=== PATIENT | female | born 1995 | race Caucasian/White ===

== ENCOUNTER 2017-10-09 13:20 | Outpatient (CLI) | payer OTHER, MEDICAID ==
[~2017-10-09] VITALS: Ht 172.7 cm; Wt 86.0 kg
[2017-10-09 15:37] LABS: MICROSCOPIC INDICATED
[2017-10-09] MEDS ORDERED: TERBUTALINE 1 MG/ML, 1ML IV ONE (16:30)
[2017-10-09] MEDS ORDERED: TERBUTALINE 1 MG/ML, 1ML ONE (16:32)
== END 2017-10-09 16:50 | disposition home or self-care (01) ==
LOC: LDOP 13:20
PROVIDERS: ATTEND Obstetrics & Gynecology
DX: O42.913 Preterm premature rupture of membranes, unspecified as to length of time between rupture and onset of labor, third trimester (principal); Z3A.30 30 weeks gestation of pregnancy
CPT/HCPCS: 36415; 59025; 81001; 82731; 89060; 96372; 99201; J3105; G0463; Q0114

== ENCOUNTER 2017-10-24 23:18 | Observation (INO) | payer OTHER, MEDICAID ==
[~2017-10-24] VITALS: Ht 172.7 cm; Wt 88.6 kg
[2017-10-25] MEDS ORDERED: TERBUTALINE 1 MG/ML, 1ML ONE (00:04)
[2017-10-25 00:24] LABS: MICROSCOPIC INDICATED
[2017-10-25] MEDS ORDERED: TERBUTALINE 1 MG/ML, 1ML SQ ONE (00:30)
[2017-10-25] MEDS ORDERED: LACTATED RINGERS 1,000 ML IVBOLUS ONE (01:30)
== END 2017-10-25 05:35 | disposition home or self-care (01) ==
LOC: LDOP 23:18 → LDIP 10-25 01:33
PROVIDERS: ADMIT Obstetrics & Gynecology; ATTEND Obstetrics & Gynecology
DX: O26.899 Other specified pregnancy related conditions, unspecified trimester (principal); R10.9 Unspecified abdominal pain; Z3A.00 Weeks of gestation of pregnancy not specified
CPT/HCPCS: 59025; 76815; 81001; 84112; 87086; 96372; G0378; J3105; J7120; 96360

== ENCOUNTER 2017-11-04 20:49 | Outpatient (CLI) | payer OTHER, MEDICAID ==
[~2017-11-04] VITALS: Ht 172.7 cm; Wt 88.6 kg
[2017-11-04 22:43] LABS: MICROSCOPIC AUTO
== END 2017-11-04 23:15 | disposition home or self-care (01) ==
LOC: LDOP 20:49
PROVIDERS: ATTEND Obstetrics & Gynecology
DX: O42.913 Preterm premature rupture of membranes, unspecified as to length of time between rupture and onset of labor, third trimester (principal); O62.9 Abnormality of forces of labor, unspecified; Z3A.34 34 weeks gestation of pregnancy
CPT/HCPCS: 59025; 81001; 84112; 87086; 99211; G0463

== ENCOUNTER 2017-11-25 13:30 | Outpatient (CLI) | payer OTHER, MEDICAID ==
[~2017-11-25] VITALS: Ht 172.7 cm; Wt 92.2 kg
[2017-11-25 13:33] VITALS: BP 102/61
== END 2017-11-25 15:25 | disposition home or self-care (01) ==
LOC: LDOP 13:30
PROVIDERS: ATTEND Obstetrics & Gynecology
DX: O26.893 Other specified pregnancy related conditions, third trimester (principal); R10.9 Unspecified abdominal pain; Z3A.37 37 weeks gestation of pregnancy
CPT/HCPCS: 59025; 99211; G0463

== ENCOUNTER 2017-11-28 21:33 | Inpatient (IN) | payer OTHER, MEDICAID ==
[~2017-11-28] VITALS: Ht 172.7 cm; Wt 92.2 kg
[2017-11-28] MEDS: LACTATED RINGERS 1,000 ML IV SCH (21:43)
[2017-11-28] MEDS ORDERED: NEWBORN KIT ONE (21:47)
[2017-11-28] MEDS ORDERED: OXYTOCIN 30U/ 0.9% NaCL 500ML 500 ML ONE ×2 (21:47→22:29)
[2017-11-28] MEDS ORDERED: MISOPROSTOL 200 MCG TABLET ONE (21:48)
[2017-11-28] MEDS ORDERED: LIDOCAINE/PF 1%, 30ML ONE (21:48)
[2017-11-28] MEDS ORDERED: FENTANYL PF 100 MCG/2ML ONE (21:57)
[2017-11-28] MEDS ORDERED: IBUPROFEN 600 MG TABLET ONE (22:46)
[2017-11-28] MEDS: IBUPROFEN 600 MG TABLET PO PRN (22:47)
[2017-11-28] MEDS ORDERED: OXYTOCIN 30U/ 0.9% NaCL 500ML 500 ML IV ONE (22:54)
[2017-11-28] MEDS: OXYTOCIN 30U/ 0.9% NaCL 500ML 500 ML IV SCH ×2 (22:58)
[2017-11-28] MEDS ORDERED: CALCIUM CARBONATE 500 MG TAB.CHEW PO PRN (23:00)
[2017-11-28] MEDS ORDERED: ONDANSETRON 2MG/ML, 2ML IV PRN (23:00)
[2017-11-28] MEDS ORDERED: ACETAMINOPHEN 325 MG TABLET PO PRN ×2 (23:00)
[2017-11-28] MEDS ORDERED: BISACODYL 10 MG SUPP PR PRN (23:00)
[2017-11-28] MEDS ORDERED: MISOPROSTOL 200 MCG TABLET PR PRN (23:00)
[2017-11-28] MEDS ORDERED: FENTANYL PF 100 MCG/2ML IV PRN (23:00)
[2017-11-28] MEDS ORDERED: HYDROcodone/APAP 5/325 TABLET PO PRN ×2 (23:00)
[2017-11-28 23:24] LABS: BASOPHILS # (AUTO) 0.04 x10^3/uL (0-0.1); BASOPHILS % (AUTO) 0 % (0-1); EOSINOPHILS # (AUTO) 0.01 x10^3/uL (0-0.4); EOSINOPHILS % (AUTO) 0 % (1-7); LYMPHOCYTES # (AUTO) 1.42 x10^3/uL (1-3.4); LYMPHOCYTES % (AUTO) 10 % (22-44); MD NO; MEAN CORPUSCULAR HEMOGLOBIN 30.4 pg (27.0-34.8); MEAN PLATELET VOLUME 8.8 fL (7.4-10.4); MONOCYTES # (AUTO) 0.99 x10^3/uL (0.2-0.8); MONOCYTES % (AUTO) 7 % (2-9); NEUTROPHILS # (AUTO) 11.98 x10^3/uL (1.8-6.8); NEUTROPHILS % (AUTO) 83 % (42-75); PLATELET COUNT 206 x10^3/uL (130-400); RED BLOOD COUNT 3.88 x10^6/uL (3.82-5.3); RED CELL DISTRIBUTION WIDTH 14.3 % (9.6-15.2)
[2017-11-29 00:20] VITALS: BP 103/62
[2017-11-29] MEDS: OXYTOCIN 30U/ 0.9% NaCL 500ML 500 ML IV SCH ×18 (00:24→23:20)
[2017-11-29 03:00] VITALS: BP 102/59
[2017-11-29 05:45] LABS: BASOPHILS # (AUTO) 0.03 x10^3/uL (0-0.1); BASOPHILS % (AUTO) 0 % (0-1); EOSINOPHILS # (AUTO) 0.02 x10^3/uL (0-0.4); EOSINOPHILS % (AUTO) 0 % (1-7); LYMPHOCYTES # (AUTO) 1.95 x10^3/uL (1-3.4); LYMPHOCYTES % (AUTO) 16 % (22-44); MD NO; MEAN CORPUSCULAR HEMOGLOBIN 30.7 pg (27.0-34.8); MEAN CORPUSCULAR HGB CONC 33.3 g/dL (32.4-35.8); MEAN CORPUSCULAR VOLUME 92.2 fL (80-100); MEAN PLATELET VOLUME 8.8 fL (7.4-10.4); MONOCYTES # (AUTO) 1.07 x10^3/uL (0.2-0.8); MONOCYTES % (AUTO) 9 % (2-9); NEUTROPHILS # (AUTO) 9.19 x10^3/uL (1.8-6.8); NEUTROPHILS % (AUTO) 75 % (42-75); PLATELET COUNT 176 x10^3/uL (130-400); RED BLOOD COUNT 3.52 x10^6/uL (3.82-5.3); RED CELL DISTRIBUTION WIDTH 14.6 % (9.6-15.2)
[2017-11-29] MEDS: LACTATED RINGERS 1,000 ML IV SCH ×3 (06:54→22:54)
[2017-11-29 07:24] VITALS: BP 101/61
[2017-11-29] MEDS: PRENATAL VIT/IRON/FA 1 EACH TABLET PO SCH (07:49)
[2017-11-29] MEDS: IBUPROFEN 600 MG TABLET PO PRN ×2 (07:49→13:50)
[2017-11-29] MEDS: DOCUSATE 100 MG CAPSULE PO PRN (07:49)
[2017-11-29 12:50] VITALS: BP 102/67
[2017-11-29 20:00] VITALS: BP 101/66
[2017-11-30] MEDS: OXYTOCIN 30U/ 0.9% NaCL 500ML 500 ML IV SCH (00:46)
[2017-11-30] MEDS: DOCUSATE 100 MG CAPSULE PO PRN (08:18)
[2017-11-30] MEDS: IBUPROFEN 600 MG TABLET PO PRN (08:18)
[2017-11-30] MEDS: PRENATAL VIT/IRON/FA 1 EACH TABLET PO SCH (08:18)
[2017-11-30 08:34] VITALS: BP 112/78
[2017-11-30] MEDS ORDERED: IBUP-1222 PO (10:41)
== END 2017-11-30 11:13 | disposition home or self-care (01) | DRG 807 ==
LOC: LDOP 21:33 → LDIP 21:54 → 2NW 11-29 00:02
PROVIDERS: ADMIT Obstetrics & Gynecology; ATTEND Obstetrics & Gynecology
PROC: 10E0XZZ Delivery of Products of Conception, External Approach (ICD-10-PCS; principal; 2017-11-28)
PROC: 0HQ9XZZ Repair Perineum Skin, External Approach (ICD-10-PCS; 2017-11-28)
DX: O62.3 Precipitate labor (principal); Z37.0 Single live birth; Z3A.38 38 weeks gestation of pregnancy; O70.0 First degree perineal laceration during delivery; Z83.3 Family history of diabetes mellitus; Z80.41 Family history of malignant neoplasm of ovary; Z82.3 Family history of stroke; Z82.49 Family history of ischemic heart disease and other diseases of the circulatory system; Z91.048 Other nonmedicinal substance allergy status
CPT/HCPCS: 36415; 85025; 86850; 86900; G0378; J3010; J2590; J7120